=== PATIENT | female | born 1965 | race Caucasian/White ===

== ENCOUNTER 2017-02-22 00:26 | Emergency (ER) | payer SELFPAY ==
[~2017-02-22] VITALS: Ht 172.7 cm; Wt 63.0 kg
[~2017-02-22 00:26] MED LIST: METH750T2 PO; PROM25SU8 PO; RANI300T PO; ZITH250T PO
[2017-02-22 00:44] VITALS: BP 154/65; PULSE 101; RESP 18; TEMP 98.1; O2SAT 97
[2017-02-22] MEDS ORDERED: SODIUM CHLORIDE 0.9% FLUSH 10 ML FLUSH IVF PRN (01:00)
[2017-02-22 01:19] LABS: BASOPHIL % 0.4 % (0.0-2.0); EOSINOPHIL # 0.1 TH/MM3 (0-0.4); EOSINOPHIL % 1.9 % (0.0-4.0); HEMATOCRIT 40.2 % (35.0-46.0); HEMO FLAGS DIFF FINAL; LYMPH % 27.7 % (9.0-44.0); LYMPHOCYTE # 1.8 TH/MM3 (1.0-4.8); MEAN CELL VOLUME 100.4 FL (80.0-100.0); MEAN CORPUSCULAR HEMOGLOBIN 33.6 PG (27.0-34.0); MEAN CORPUSCULAR HGB CONC 33.4 % (32.0-36.0); MONO % 8.7 % (0.0-8.0); NEUT % 61.3 % (16.0-70.0); PLATELET COUNT 138 TH/MM3 (150-450); RED CELL DISTRIBUTION WIDTH 13.7 % (11.6-17.2); WHITE BLOOD COUNT 6.5 TH/MM3 (4.0-11.0)
[2017-02-22 01:21] LABS: BACTERIA, URINE MANY /hpf; BLOOD, URINE NEG (NEG); COMMENT (UR) CULTURE INDICATED; CULTURE IF INDICATED CULTURE INDICATED; GLUCOSE,URINE NEG (NEG); KETONE, URINE NEG (NEG); NITRITE,URINE POS (NEG); PH, URINE 5.5 (5.0-8.5); SQUAMOUS EPITHELIAL CELL URINE 4 /hpf (0-5); URINE COLOR YELLOW (YELLW/STRAW)
--- NOTE | 2017-02-22 01:29 | RADRPT ---
EXAM DATE/TIME: 02/22/2017 01:10 [place] COMPARISON: CHEST SINGLE AP, August 26, 2015, 7:56. INDICATIONS : Shortness of breath. MEDICAL HISTORY : None. SURGICAL HISTORY : None. ENCOUNTER: Initial ACUITY: 1 day PAIN SCORE: 0/10 LOCATION: Bilateral chest FINDINGS: A single view of the chest demonstrates the lungs to be symmetrically aerated without evidence of mas s, infiltrate or effusion. The cardiomediastinal contours are unremarkable. Osseous structures are intact. CONCLUSION: No acute disease. Juni Grande MD on February 22, 2017 at 1:26 Board Certified Radiologist. This report was verified electronically.
[2017-02-22] MEDS: RESP: ALBUTEROL 2.5 MG/IPRATROPIUM 0.5 MG NEB (SCH) INH (01:32)
[2017-02-22 01:33] LABS: ANION GAP 7 MEQ/L (5-15); AST (GOT) 117 U/L (15-37); BICARBONATE 27.1 MEQ/L (21.0-32.0); BLOOD UREA NITROGEN 4 MG/DL (7-18); CHLORIDE 106 MEQ/L (98-107); GLOMERULAR FILTRATION RATE 99 ML/MIN (>89); POTASSIUM 3.4 MEQ/L (3.5-5.1); SODIUM (NA) 140 MEQ/L (136-145)
[2017-02-22 01:36] LABS: ALKALINE PHOSPHATASE 203 U/L (45-117); ALT (GPT) 90 U/L (10-53); TOTAL BILIRUBIN ADULT 0.6 MG/DL (0.2-1.0)
[2017-02-22 03:06] VITALS: O2SAT 96
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
[2017-02-22 07:30] VITALS: BP 117/82; PULSE 97; RESP 17; O2SAT 96
== END 2017-02-22 09:43 | disposition home or self-care (01) ==
LOC: NEPE 00:26 → NEPB 09:43
DX: F10.920 Alcohol use, unspecified with intoxication, uncomplicated (principal); T74.21XA Adult sexual abuse, confirmed, initial encounter; F17.200 Nicotine dependence, unspecified, uncomplicated; J44.9 Chronic obstructive pulmonary disease, unspecified; N39.0 Urinary tract infection, site not specified; B96.20 Unspecified Escherichia coli [E. coli] as the cause of diseases classified elsewhere; Y07.9 Unspecified perpetrator of maltreatment and neglect
CPT/HCPCS: 71010; 80053; 81001; 84703; 85025; 87077; 87086; 87186; 94640; 94664; 99284

== ENCOUNTER 2017-11-27 16:34 | Observation (INO) | payer SELFPAY ==
[~2017-11-27] VITALS: Ht 175.3 cm; Wt 68.0 kg
[2017-11-27 16:52] VITALS: BP 124/70; PULSE 116; RESP 21; TEMP 97.7; O2SAT 94
[2017-11-27 16:58] VITALS: BP 134/72; PULSE 113; RESP 20; TEMP 97.7; O2SAT 94
--- NOTE | 2017-11-27 17:19 | PD ---
HPI Chief Complaint: Alcohol/Drug Intoxication Time Seen by Provider: 17:04 Travel History International Travel<30 days: No Contact w/Intl Traveler<30days: No Traveled to known affect area: No History of Present Illness HPI Patient presents to the emergency department complaining of not feeling well after smoking K2 with a friend approximately 1 hour ago. States that she "thinks I have bronchitis." Reporting a productive cough with yellow and white phlegm. Shortness of breath, subjective fever and chills. Complaining of diffuse, chronic chest pain. PFSH Past Medical History Arthritis: Yes Bipolar Disorder: Yes Anxiety: Yes Depression: Yes Cancer: No COPD: Yes Diminished Hearing: No Endocrine: No Fibromyalgia: Yes Hepatitis: Yes (HEP C) Psychiatric: Yes Respiratory: Yes Tetanus Vaccination: Unknown Influenza Vaccination: No ?: Not LMP: 2010 : 4 Para: 4 Tubal Ligation: Yes Past Surgical History Abdominal Surgery: No Cardiac Surgery: No Ear Surgery: No Endocrine Surgery: No Eye Surgery: No Genitourinary Surgery: No Gynecologic Surgery: Yes (tube ligation ) Neurologic Surgery: No Oral Surgery: No Thoracic Surgery: No Tonsillectomy: Yes Other Surgery: Yes Social History Alcohol Use: Yes (DAILY ETOH) Tobacco Use: Yes (1 PACK A DAY ) Substance Use: Yes (K2, COCAINE) Allergies-Medications (Allergen,Severity, Reaction): Coded Allergies: cephalexin (Unverified Allergy, Unknown, HIVES/SWELLING, 11/27/17) Reported Meds & Prescriptions Reported Meds & Active Scripts Active Review of Systems Except as stated in HPI: all other systems reviewed are Neg Physical Exam Narrative GENERAL: No acute distress. SKIN: Focused skin assessment warm/dry. Positive rash bilateral lower extremity and right upper extremity HEAD: Atraumatic. Normocephalic. EYES: Pupils equal and round. No scleral icterus. No injection or drainage. ENT: No nasal bleeding or discharge. Mucous membranes pink and moist. NECK: Trachea midline. No JVD. CARDIOVASCULAR: Regular rate and rhythm. No murmur appreciated. RESPIRATORY: No accessory muscle use. Bilateral expiratory wheezes. GASTROINTESTINAL: Abdomen soft, non-tender, nondistended. MUSCULOSKELETAL: No obvious deformities. No clubbing. No cyanosis. No edema. NEUROLOGICAL: Awake and alert. No obvious cranial nerve deficits. Motor grossly within normal limits. Normal speech. PSYCHIATRIC: Appropriate mood and affect; insight and judgment normal. Data Data Last Documented VS Vital Signs Date Time Temp Pulse Resp B/P (MAP) Pulse Ox O2 Delivery O2 Flow Rate FiO2 11/27/17 18:32 105 17 132/62 (85) 95 Room Air 11/27/17 17:28 97.7 Orders Orders Complete Blood Count With Diff (11/27/17 17:19) Comprehensive Metabolic Panel (11/27/17 17:19) Ckmb (Isoenzyme) Profile (11/27/17:19) Troponin I (11/27/17:19) Iv Access Insert/Monitor (11/27/17 17:19) Electrocardiogram (11/27/17:19) Ecg Monitoring (11/27/17:19) Oximetry (11/27/17:19) Chest, Single Ap (11/27/17:19) Sodium Chloride 0.9% Flush (Ns Flush) (11/27/17 17:30) Albuterol Neb (Albuterol Neb) (11/27/17 17:30) Prednisone (Deltasone) (11/27/17 17:30) Methylprednisolone So Succ Inj (Solumedr (11/27/17 18:00) Sodium Chlorid 0.9% 500 Ml Inj (Ns 500 M (11/27/17 18:15) CKMB (11/27/17 17:00) CKMB% (11/27/17 17:00) Drug Screen, Random Urine (11/27/17 19:25) Admit Order (Ed Use Only) (11/27/17 19:28) Labs Laboratory Tests Test 11/27/17 17:00 White Blood Count 5.2 TH/MM3 Red Blood Count 3.84 MIL/MM3 Hemoglobin 13.1 GM/DL Hematocrit 37.6 % Mean Corpuscular Volume 98.0 FL Mean Corpuscular Hemoglobin 34.2 PG Mean Corpuscular Hemoglobin Concent 34.9 % Red Cell Distribution Width 14.1 % Platelet Count 117 TH/MM3 Mean Platelet Volume 9.0 FL Neutrophils (%) (Auto) 62.0 % Lymphocytes (%) (Auto) 22.0 % Monocytes (%) (Auto) 11.2 % Eosinophils (%) (Auto) 4.1 % Basophils (%) (Auto) 0.7 % Neutrophils # (Auto) 3.2 TH/MM3 Lymphocytes # (Auto) 1.2 TH/MM3 Monocytes # (Auto) 0.6 TH/MM3 Eosinophils # (Auto) 0.2 TH/MM3 Basophils # (Auto) 0.0 TH/MM3 CBC Comment DIFF FINAL Differential Comment Blood Urea Nitrogen 3 MG/DL Creatinine 0.63 MG/DL Random Glucose 124 MG/DL Total Protein 7.9 GM/DL Albumin 3.0 GM/DL Calcium Level 8.4 MG/DL Alkaline Phosphatase 297 U/L Aspartate Amino Transf (AST/SGOT) 169 U/L Alanine Aminotransferase (ALT/SGPT) 83 U/L Total Bilirubin 0.8 MG/DL Sodium Level 136 MEQ/L Potassium Level 3.9 MEQ/L Chloride Level 104 MEQ/L Carbon Dioxide Level 19.7 MEQ/L Anion Gap 12 MEQ/L Estimat Glomerular Filtration Rate 100 ML/MIN Total Creatine Kinase 163 U/L Creatine Kinase MB 0.8 NG/ML Troponin I LESS THAN 0.02 NG/ML MDM Medical Decision Making Medical Screen Exam Complete: Yes Emergency Medical Condition: Yes Interpretation(s) ECG: Sinus tachycardia at 110, no ST elevation or depression Labs: Decreased platelet, increased glucose, AST, ALT Last Impressions Chest X-Ray 11/27/17 1719 Signed Impressions: CONCLUSION: No acute findings Differential Diagnosis COPD exacerbation, ACS, pulmonary edema, pleural effusion Narrative Course Patient presents to the emergency department complaining of productive cough, shortness of breath, and chest pain. Patient placed on shelter monitor, IV access obtained, and chest x-ray/EKG/labs/duo nebs/steroids ordered. 1754: Patient spit up one of the prednisone tablets. Given 125 mg IV methylprednisolone. 1907: 132/62, 90 Diagnosis Primary Impression: COPD (chronic obstructive pulmonary disease) Qualified Codes: J44.1 - Chronic obstructive pulmonary disease with (acute) exacerbation Additional Impression: Drug intoxication Qualified Codes: F19.929 - Other psychoactive substance use, unspecified with intoxication, unspecified Admitting Information Admitting Physician Requests: Observation Scripts Walker with Front Wheels (Walker with Front Wheels) 1 Mis Mis EA .XX DIRECTED, #1 0 Refills Prov: Aguilar Mckenna MD 11/28/17 Erythromycin Opth Oint (Erythromycin Opth Oint) 5 Mg/Gm Oint 1 APPLIC EACH EYE QID for Infection for 10 Days, #1 TUBE 0 Refills Prov: Aguilar Mckenna MD 11/28/17 Budesonide-Formoterol Inh (Symbicort Inh) 80-4.5 Mcg/Act Aero 1 PUFF INH Q12HR for Asthma Management, #1 INHALER 0 Refills Prov: Aguilar Mckenna MD 11/28/17 Albuterol 18 GM Inh (Ventolin Hfa 18 GM Inh) 90 Mcg/Act Aer 2 PUFF INH Q4-6H Y for SHORTNESS OF BREATH, #1 INHALER 0 Refills Prov: Aguilar Mckenna MD 11/28/17 Azithromycin (Zithromax Z-Stu) 250 Mg Dspk 250 MG PO DIRECTED for Infection, #1 DSPK 0 Refills 500 MG (2 tabs) day 1, then 1 tab days 2-5. Prov: Aguilar Mckenna MD 11/28/17 Condition: Jonna Gama MD Nov 27, 2017 17:19
[2017-11-27 17:28] VITALS: BP 134/72; PULSE 103; RESP 17; TEMP 97.7; O2SAT 94
[2017-11-27] MEDS ORDERED: predniSONE 20 MG TAB PO ONE (17:30)
[2017-11-27] MEDS ORDERED: SODIUM CHLORIDE 0.9% FLUSH 10 ML FLUSH IVF PRN (17:30)
[2017-11-27] MEDS ORDERED: predniSONE 50 MG TAB PO ONE (17:30)
[2017-11-27 17:56] LABS: AUTOMATED NEUTROPHIL # 3.2 TH/MM3 (1.8-7.7); BASOPHIL % 0.7 % (0.0-2.0); EOSINOPHIL # 0.2 TH/MM3 (0-0.4); EOSINOPHIL % 4.1 % (0.0-4.0); HEMATOCRIT 37.6 % (35.0-46.0); HEMOGLOBIN 13.1 GM/DL (11.6-15.3); LYMPHOCYTE # 1.2 TH/MM3 (1.0-4.8); MEAN CORPUSCULAR HEMOGLOBIN 34.2 PG (27.0-34.0); MEAN CORPUSCULAR HGB CONC 34.9 % (32.0-36.0); MONO % 11.2 % (0.0-8.0); MONOCYTE # 0.6 TH/MM3 (0-0.9); PLATELET COUNT 117 TH/MM3 (150-450); RED BLOOD COUNT 3.84 MIL/MM3 (4.00-5.30); RED CELL DISTRIBUTION WIDTH 14.1 % (11.6-17.2); WHITE BLOOD COUNT 5.2 TH/MM3 (4.0-11.0)
[2017-11-27] MEDS ORDERED: methylPREDNISolone SOD SUCC 125 MG/2 ML VIAL IV PUSH ONE (18:00)
--- NOTE | 2017-11-27 18:03 | RADRPT ---
EXAM DATE: 11/27/2017 5:41 PM EDT AGE/SEX: 52 years / Female INDICATIONS: Short of breath. CLINICAL DATA: This is the patient's initial encounter. Patient reports that signs and symptoms have been present for 1 day and indicates a pain score of Nonresponsive. MEDICAL/SURGICAL HISTORY: None. None. COMPARISON: [facility] [place], CHEST SINGLE AP, 02/22/2017. . FINDINGS: A single AP view of the chest demonstrates the lungs to be symmetrically aerated without evidence of mass, infiltrate or effusion. The cardiomediastinal contours are unremarkable. Osseous structures a re intact. CONCLUSION: No acute findings Electronically signed by: Juni Grande MD 11/27/2017 6:02 PM EDT
[2017-11-27] MEDS ORDERED: SODIUM CHLORID 0.9% 500 ML INJ 500 ML IV ONE (18:15)
[2017-11-27 18:19] LABS: ALT (GPT) 83 U/L (10-53)
[2017-11-27 18:32] VITALS: BP 132/62; PULSE 105; RESP 17; O2SAT 95
[2017-11-27 18:33] LABS: ALKALINE PHOSPHATASE 297 U/L (45-117); AST (GOT) 169 U/L (15-37); BICARBONATE 19.7 MEQ/L (21.0-32.0); BLOOD UREA NITROGEN 3 MG/DL (7-18); CALCIUM 8.4 MG/DL (8.5-10.1); CHLORIDE 104 MEQ/L (98-107); CREATININE 0.63 MG/DL (0.50-1.00); GLOMERULAR FILTRATION RATE 100 ML/MIN (>89); GLUCOSE,RANDOM 124 MG/DL (74-106); SODIUM (NA) 136 MEQ/L (136-145); TOTAL BILIRUBIN ADULT 0.8 MG/DL (0.2-1.0); TOTAL PROTEIN 7.9 GM/DL (6.4-8.2); TROPONIN I LESS THAN 0.02 NG/ML (0.02-0.05)
[2017-11-27] MEDS: RESP: ALBUTEROL 2.5 MG/3 ML NEB (SCH) INH ×2 (19:18→19:19)
[2017-11-27 19:30] VITALS: O2SAT 96
[2017-11-27] MEDS ORDERED: RESP: ALBUTEROL 2.5 MG/IPRATROPIUM 0.5 MG NEB (PRN) NEB (19:30)
[2017-11-27] MEDS ORDERED: SODIUM CHLORIDE 0.9% FLUSH 10 ML FLUSH IV FLUSH PRN (19:30)
[2017-11-27 20:22] VITALS: BP 131/78; PULSE 89; RESP 17; TEMP 98.5; O2SAT 96
[2017-11-27] MEDS ORDERED: LORazepam 1 MG TAB PO PRN (21:15)
[2017-11-27] MEDS ORDERED: HALOPERIDOL LACTATE 5 MG/ML AMP IM PRN (21:15)
[2017-11-27] MEDS ORDERED: LORazepam 2 MG TAB PO PRN (21:15)
[2017-11-27] MEDS ORDERED: FLUMAZENIL 0.5 MG/5 ML VIAL IV PUSH PRN (21:15)
[2017-11-27] MEDS ORDERED: LORazepam 2 MG/ML VIAL IV PUSH PRN ×4 (21:15)
[2017-11-27] MEDS ORDERED: POLYMYXIN/TRIMETHOPRIM OPHT SOLN 10 ML BTL EACH EYE SCH (21:15)
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
[2017-11-27] MEDS: RESP: ALBUTEROL 2.5 MG/IPRATROPIUM 0.5 MG NEB (SCH) NEB (22:00)
[2017-11-27] MEDS: methylPREDNISolone SOD SUCC 40 MG/1 ML VIAL IV PUSH SCH (22:49)
[2017-11-27] MEDS: CLOTRIMAZOLE 1% CREAM 15 GM TOPICAL SCH (22:49)
[2017-11-27] MEDS: SODIUM CHLORIDE 0.9% FLUSH 10 ML FLUSH IV FLUSH SCH (22:50)
[2017-11-28 01:37] VITALS: BP 118/65; PULSE 99; RESP 16; TEMP 98.6; O2SAT 92
[2017-11-28] MEDS: RESP: ALBUTEROL 2.5 MG/IPRATROPIUM 0.5 MG NEB (SCH) NEB ×2 (03:04→10:00)
[2017-11-28 05:56] VITALS: BP 110/67; PULSE 79; RESP 16; TEMP 98; O2SAT 96
[2017-11-28] MEDS: ERYTHROMYCIN 0.5% OPTH OINT 3.5 GM TUBO EACH EYE SCH ×3 (06:00→12:03)
[2017-11-28] MEDS: methylPREDNISolone SOD SUCC 40 MG/1 ML VIAL IV PUSH SCH ×2 (06:00→14:50)
[2017-11-28 07:28] LABS: AUTOMATED NEUTROPHIL # 4.2 TH/MM3 (1.8-7.7); BASOPHIL % 0.4 % (0.0-2.0); EOSINOPHIL % 0.1 % (0.0-4.0); HEMATOCRIT 39.2 % (35.0-46.0); HEMOGLOBIN 13.4 GM/DL (11.6-15.3); LYMPH % 7.4 % (9.0-44.0); LYMPHOCYTE # 0.4 TH/MM3 (1.0-4.8); MEAN CELL VOLUME 97.9 FL (80.0-100.0); MEAN CORPUSCULAR HEMOGLOBIN 33.4 PG (27.0-34.0); MEAN CORPUSCULAR HGB CONC 34.1 % (32.0-36.0); MEAN PLATELET VOLUME 8.5 FL (7.0-11.0); MONOCYTE # 0.2 TH/MM3 (0-0.9); NEUT % 88.1 % (16.0-70.0); PLATELET COUNT 112 TH/MM3 (150-450); RED CELL DISTRIBUTION WIDTH 13.9 % (11.6-17.2); WHITE BLOOD COUNT 4.8 TH/MM3 (4.0-11.0)
[2017-11-28 07:57] LABS: CALCIUM 8.8 MG/DL (8.5-10.1); CREATININE 0.61 MG/DL (0.50-1.00)
[2017-11-28 08:25] VITALS: BP 105/65; PULSE 74; RESP 18; TEMP 98.8; O2SAT 97
[2017-11-28] MEDS ORDERED: THIAMINE HCL 100 MG TAB PO SCH (09:00)
[2017-11-28] MEDS ORDERED: FOLIC ACID 1 MG TAB PO SCH (09:00)
[2017-11-28] MEDS ORDERED: MULTIVITAMINS/MINERALS THERAPEUTIC TAB PO SCH (09:00)
[2017-11-28] MEDS ORDERED: INFLUENZA VIRUS VACCINE (QUADRIVALENT) 0.5 ML SYR IM ONE (09:00)
[2017-11-28] MEDS ORDERED: PNEUMOCOCCAL POLYVALENT INJ 25 MCG/0.5 ML SYR IM ONE (09:00)
[2017-11-28] MEDS: SODIUM CHLORIDE 0.9% FLUSH 10 ML FLUSH IV FLUSH SCH (09:32)
[2017-11-28] MEDS: CLOTRIMAZOLE 1% CREAM 15 GM TOPICAL SCH (09:33)
[2017-11-28] MEDS ORDERED: VENTAER INH (11:09)
[2017-11-28] MEDS ORDERED: ZITHTAB PO (11:09)
[2017-11-28] MEDS ORDERED: SYMB80AE INH (11:09)
[2017-11-28] MEDS ORDERED: SODIUM CHLOR 0.9% 1000 ML INJ 1,000 ML IV ONE (11:15)
[2017-11-28] MEDS ORDERED: ERYTOIN10 EACH EYE (11:16)
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
--- NOTE | 2017-11-28 11:17 | HHI.PR ---
Subjective Remarks Nursing denies any deterioration since last night. CIWA score is about 2. Patient denies any worsening shortness of breath. As a matter fact she has no conversive dyspnea no shortness of breath upon evaluation. Says she is an anxious person in general. Says she used to be on Valium and once Valium now. Objective Vital Signs Date Time Temp Pulse Resp B/P (MAP) Pulse Ox O2 Delivery O2 Flow Rate FiO2 11/28/17 08:25 98.8 74 18 105/65 (78) 97 11/28/17 05:56 98.0 79 16 110/67 (81) 96 11/28/17 01:37 98.6 99 16 118/65 (82) 92 11/27/17 20:24 11/27/17 20:22 98.5 89 17 131/78 (95) 96 11/27/17 19:30 96 11/27/17 18:32 105 17 132/62 (85) 95 Room Air 11/27/17 17:28 97.7 103 17 134/72 (92) 94 Room Air 11/27/17 16:59 112 20 94 Room Air 11/27/17 16:58 97.7 113 20 134/72 (92) 94 Room Air 11/27/17 16:52 97.7 116 21 124/70 (88) 94 I/O 11/27/17 11/27/17 11/27/17 11/28/17 11/28/17 11/28/17 07:00 15:00 23:00 07:00 15:00 23:00 Intake Total 500 ml 720 ml Balance 500 ml 720 ml Intake Oral 720 ml IV Total 500 ml # Voids 7 Result Diagram: 11/28/17 0710 11/28/17 0710 Objective Remarks Clear lungs bilaterally, unlabored breathing Scleral conjunctival looks unremarkable bilaterally A/P Assessment and Plan Shortness of breath -Possible bronchitis/COPD exacerbation. Resolved at this time. Will prescribe albuterol, Symbicort as well as a course of azithromycin. Dizziness, has some mild orthostatic hypotension which resolved with IV fluids. Now a symptomatic. Physical therapy has evaluated the patient, seems to demonstrate inconsistent levels of stability and endurance, particularly demonstrates good ambulation per PT when the patient reaches or ambulates towards for an object that she desires. Conjunctivitis clinically improved as well. Transaminitis show significant improvement with IV fluids suggestive of alcoholic steatosis. Patient has met maximal benefit from hospitalization and is clinically stable for discharge. Aguilar Mckenna MD Nov 28, 2017 11:17
[2017-11-28 11:51] VITALS: BP_SYST 114; BP_SYST 94; BP_DIAS 54; BP_DIAS 66; PULSE 62; RESP 18; TEMP 98.2; O2SAT 97
[2017-11-28 13:21] LABS: ALBUMIN 3.1 GM/DL (3.4-5.0); DIRECT BILIRUBIN ADULT 0.4 MG/DL (0.0-0.2)
[2017-11-28 13:23] LABS: INDIRECT BILIRUBIN 0.5 MG/DL (0.0-0.8); TOTAL BILIRUBIN ADULT 0.9 MG/DL (0.2-1.0); TOTAL PROTEIN 8.1 GM/DL (6.4-8.2)
[2017-11-28] MEDS ORDERED: WALKER WHEELS/F1 MIS (14:19)
[2017-11-28 15:36] VITALS: BP_SYST 118; BP_SYST 119; BP_SYST 121; BP_DIAS 61; BP_DIAS 64; BP_DIAS 65; PULSE 53; RESP 18; TEMP 98.5; O2SAT 98
--- NOTE | 2017-11-28 17:04 | EKG ---
Date Performed: 11/27/2017 Time Performed: 17:57:21 PTAGE: 52 years EKG: SINUS TACHYCARDIA ABNORMAL RHYTHM ECG PREVIOUS TRACING : 08/26/2015 07.54 Since the previous tracing, no significant change noted DOCTOR: Tawana Cash Interpretating Date/Time 11/28/2017 17:01:30
== END 2017-11-28 18:25 | disposition home or self-care (01) ==
LOC: NEPE 16:34 → NEDA 19:29 → NEPHCDU 20:18
PROVIDERS: ADMIT Hospitalist; ATTEND Hospitalist
DX: J44.0 Chronic obstructive pulmonary disease with (acute) lower respiratory infection (principal); J20.9 Acute bronchitis, unspecified; F19.129 Other psychoactive substance abuse with intoxication, unspecified; R06.02 Shortness of breath; R50.9 Fever, unspecified; R05 Cough; G89.29 Other chronic pain; M19.90 Unspecified osteoarthritis, unspecified site; F41.9 Anxiety disorder, unspecified; F32.9 Major depressive disorder, single episode, unspecified; M79.7 Fibromyalgia; B19.20 Unspecified viral hepatitis C without hepatic coma; F17.210 Nicotine dependence, cigarettes, uncomplicated; F14.10 Cocaine abuse, uncomplicated; R00.0 Tachycardia, unspecified; N18.9 Chronic kidney disease, unspecified; K74.60 Unspecified cirrhosis of liver; Z82.49 Family history of ischemic heart disease and other diseases of the circulatory system; H10.30 Unspecified acute conjunctivitis, unspecified eye; B35.4 Tinea corporis; F10.10 Alcohol abuse, uncomplicated; K70.40 Alcoholic hepatic failure without coma; R74.0 Nonspecific elevation of levels of transaminase and lactic acid dehydrogenase [LDH]; R94.31 Abnormal electrocardiogram [ECG] [EKG]; R42 Dizziness and giddiness; I95.1 Orthostatic hypotension
CPT/HCPCS: 36600; 71045; 80048; 80053; 80076; 80307; 82550; 82552; 82805; 84484; 85025; 93005; 94640; 94664; 96361; 96374; 96376; 97161; 99285; G0378; G8987; G8988; J2920; J2930; J7030; J7040; J7512; J7613